=== PATIENT | female | born 1990 | race Caucasian/White ===

== ENCOUNTER 2020-02-24 14:12 | Inpatient (IN) | payer OTHER ==
[2020-02-24] MEDS ORDERED: LACTATED RINGERS 1,000 ML IV ONE (15:05)
[2020-02-24] MEDS ORDERED: CITRIC ACID-SODIUM CITRATE 15 ML CUP PO ONE (15:05)
--- NOTE | 2020-02-24 15:05 | P.HPOB ---
History of Present Illness H&P Date: 02/24/20 Chief Complaint: Bloody show This is a 29-year-old 3 para woman with an estimated due date of 02/16/2020 based on second trimester ultrasound who presents to labor and delivery triage at 41+ weeks gestation. She is complaining of some vaginal discharge, pink tinge since this morning. She's had mild irregular cramping. She denies leakage of fluids, heavy vaginal bleeding or painful contractions. Her obstetric history is significant for a term section for twins in 2011 and a postdates vaginal delivery in 2009. Unfortunately that child had multiple anomalies and is at age 7. has been complicated by late care, presenting at 19 weeks gestation and her last routine care visit with us was at 30 weeks gestation. She reports having some difficulty with [employer] and her medical insurance. The office was unaware of this issue. She reports she feels that she has been doing well in the time that she has not been seen. Upon initial evaluation on labor and delivery triage she is found to be irregularly sujey, cervix is 4 cm dilated 90% effaced and there is no presenting part. Bedside ultrasound shows a transverse presentation with the head to the maternal left abdomen. : Laboratory data: Blood type A+, antibody screen negative, rubella immune, VDRL nonreactive, hepatitis B surface antigen negative, HIV negative, gonorrhea clinic cultures negative, group B strep status unknown Review of Systems All systems: negative Past Medical History Past Medical History: Asthma Past Surgical History: Section Past Anesthesia/Blood Transfusion Reactions: No Reported Reaction Past Psychological History: No Psychological Hx Reported Smoking Status: Current some day smoker Past Alcohol Use History: None Reported Past Drug Use History: Marijuana Exam This is a pleasant, comfortable appearing female who is visibly gravid. Targeted physical exam is performed. The abdomen is gravid and appears term. Nontender. On Chase's infant in the transverse position with vertex in maternal left lower quadrant. On pelvic exam cervix is 4 cm dilated, 90% effaced with bulging membranes no presenting part. heart tones are curre ntly category 1 and she has an irritable contraction pattern. Assessment and Plan (1) Insufficient care Current Visit: Yes Status: Acute Code(s): O09.30 - SUPRVSN OF PREG W INSUFFICIENT ANTENAT CARE, UNSP TRIMESTER SNOMED Code(s): 1643306164647 (2) Malpresentation of fetus Current Visit: Yes Status: Acute Code(s): O32.9XX0 - MATERNAL CARE FOR MALPRESENTATION OF FETUS, UNSP, UNSP SNOMED Code(s): 49995046 (3) Spontaneous onset of labor Current Visit: Yes Status: Acute Code(s): UWN4559 - SNOMED Code(s): 89209598 (4) History of Current Visit: Yes Status: Acute Code(s): Z98.891 - HISTORY OF UTERINE SCAR FROM PREVIOUS SURGERY SNOMED Code(s): 307490354 Plan: This is a 29-year-old 3 para 2001 with history of previous low transverse section for twins who presents at 41+ weeks gestation in early active labor. Infant is in the transverse presentation. She is counseled regarding findings and recommendation for delivery secondary to significant postdates status, advanced cervical dilation. I recommend repeat low transverse section secondary to position. Patient understands these recommendations and agrees to proceed. Risks of the were reviewed with the patient and include but are not limited to: Bleeding, transfusion, infection, damage to bowel, bladder, ureters and/or other maternal structures, injury to infant, anesthesia complications, DVT or PE. Patient understands these risks and agrees to proceed. The anesthesiology team as well as the the OR have been notified.
[2020-02-24 15:35] LABS: Basophils % (A) 0 %; Eosinophils # (A) 0.2 k/uL (0-0.7); Eosinophils % (A) 1 %; HCT 43.4 % (34.0-46.0); HGB 14.2 gm/dL (11.4-16.0); Lymphocytes # (A) 2.6 k/uL (1.0-4.8); Lymphocytes % (A) 14 %; MCH 32.9 pg (25.0-35.0); MCHC 32.8 g/dL (31.0-37.0); MCV 100.4 fL (80.0-100.0); Mean Platelet Volume 9.2; Monocytes # (A) 0.5 k/uL (0-1.0); Monocytes % (A) 3 %; Neutrophils # (A) 14.8 k/uL (1.3-7.7); Neutrophils % (A) 81 %; Platelet Count 229 k/uL (150-450); RBC 4.33 m/uL (3.80-5.40); RDW 12.5 % (11.5-15.5); WBC 18.2 k/uL (3.8-10.6)
[2020-02-24] MEDS ORDERED: CLINDAMYCIN 600 MG in DEXTROSE 5% IN WATER 50 ML IVPB STA ×2 (15:35)
[2020-02-24 15:53] LABS: Amphetamine Screen,Urine Not Detected (NotDetected); Barbiturate Screen,Urine Not Detected (NotDetected); Benzodiazepines Screen,Urine Not Detected (NotDetected); Cocaine Screen,Urine Not Detected (NotDetected); Methadone Screen, Urine Not Detected (NotDetected); Opiate Screen,Urine Not Detected (NotDetected); Oxycodone Screen, Urine Not Detected (NotDetected); Phencyclidine Screen,Urine Not Detected (NotDetected); Tricyclic Antidepressant,Urine Not Detected (NotDetected); Urn Cannabinoid Scrn Detected (NotDetected)
[2020-02-24] MEDS ORDERED: MORPHINE SULFATE (PF) 0.3 MG/0.3 ML SYR ONE (16:13)
[2020-02-24] MEDS ORDERED: NALBUPHINE 10 MG/ML (1 ML AMP) ONE (16:13)
[2020-02-24] MEDS ORDERED: ONDANSETRON 4 MG/2 ML VIAL ONE (16:13)
[2020-02-24] MEDS ORDERED: OXYTOCIN 10 UNIT/ML 1 ML VIAL ONE (16:13)
[2020-02-24] MEDS ORDERED: ePHEDrine SULFATE/0.9% NACL/PF 50 MG/5 ML SYRINGE IV ONE (16:13)
[2020-02-24] MEDS ORDERED: KETOROLAC 30 MG/ML 1 ML VIAL ONE (16:13)
[2020-02-24] MEDS ORDERED: fentaNYL (PF) 50 MCG/ML 2 ML AMP ONE (16:13)
[2020-02-24] MEDS ORDERED: ACETAMINOPHEN TAB 325 MG TAB PO PRN (17:02)
[2020-02-24] MEDS ORDERED: HYDROcodone/APAP 5-325MG 1 EACH TAB PO PRN (17:02)
[2020-02-24] MEDS ORDERED: NALOXONE 0.4 MG/ML 1 ML VIAL IV PRN ×2 (17:02→21:13)
[2020-02-24] MEDS ORDERED: ZOLPIDEM 5 MG TAB PO PRN (17:02)
[2020-02-24] MEDS ORDERED: ONDANSETRON 4 MG/2 ML VIAL IVP PRN (17:02)
[2020-02-24] MEDS ORDERED: KETOROLAC 30 MG/ML 1 ML VIAL IVP PRN (17:02)
[2020-02-24] MEDS ORDERED: SIMETHICONE 80 MG CHEWABLE PO PRN (17:02)
[2020-02-24] MEDS ORDERED: diphenhydrAMINE 50 MG CAP PO PRN (17:02)
[2020-02-24] MEDS ORDERED: diphenhydrAMINE 50 MG/ML 1 ML VIAL IVP PRN ×2 (17:02)
[2020-02-24] MEDS ORDERED: diphenhydrAMINE 25 MG CAP PO PRN (17:02)
[2020-02-24] MEDS ORDERED: METOCLOPRAMIDE 5 MG/ML 2 ML VIAL IVP PRN (17:02)
--- NOTE | 2020-02-24 17:02 | P.OP ---
Date of Procedure: 02/24/20 Preoperative Diagnosis: Postdates at 41 and one sevenths weeks History of previous low transverse section Incision care Active labor malpresentation, transverse Postoperative Diagnosis: Same Procedure(s) Performed: Repeat low transverse section Anesthesia: spinal Surgeon: Tejal Cohn [employer] #1: Ivis Fabian Estimated Blood Loss (ml): 785 IV fluids (ml): 1,000 Urine output (ml): 100 Pathology: other (Placenta) Condition: stable Disposition: floor Operative Findings: Female in the transverse presentation occiput to the maternal left lower quadrant. Nuchal cord 1. Apgars of 8 at 1 minute and 9 at 5 minutes weighing 5 lbs. 10 oz., 2550 g. Description of Procedure: After the patient was met preoperatively and all questions were answered, she was taken to the operating room where spinal anesthetic was administered without incident. She was then positioned, prepped and draped in the dorsal supine position with a leftward tilt. Urbina catheter was placed. After anesthetic was confirmed adequate, a low transverse skin incision was made following the pre- existing scar. This was carried down to the underlying fascia both sharply and with the electrocautery. The fascia was then incised in the midline and extended bilaterally with the Alexander scissors. The superior aspect of the fascial incision was elevated and the underlying rectus muscles dissected off sharply and with the electrocautery. The inferior aspect of the fascial incision was also elevated and the underlying rectus muscles dissected off sharply. The muscles were adherent in the midline. These were bluntly and the peritoneum was tented up with hemostats. The peritoneum was entered sharply with the Metzenbaum scissors. The peritoneal incision was extended inferiorly and superiorly with good visualization of the bladder. The bladder blade was placed. The vesicouterine peritoneum was identified, tented up and entered sharply, the bladder flap was created both sharply and digitally. A low transverse uterine incision was then made sharply and carried down to the underlying amniotic membranes. Membranes were ruptured and light meconium- stained fluid was noted. The uterine incision was extended bilaterally bluntly. The infant's head was delivered from the incision without difficulty. Nuchal cord 1 was reduced .The nose and mouth were bulb suctioned. The rest of the was delivered onto the field without difficulty. And cut and the infant was taken to the warmer. An intact, three-vessel cord placenta was then manually removed and the uterus was exteriorized. The uterus was cleared of all clot and debris. The uterine incision was delineated with Santizo clamps. The uterine incision was then closed in a running locked fashion with 0 Vicryl suture. A second imbricating layer of the same was placed. The uterus was then returned to the abdomen and the gutters were cleared of all clot and debris. The uterine incision was reinspected and Bovie electrocautery was utilized were necessary for hemostasis. The fascial edges, peritoneal edges and rectus muscles were inspected and Bovie electrocautery utilized were necessary for hemostasis. The fascia was then closed in a running fashion with 0 Vicryl suture. The subcuticular tissue was copiously suction irrigated and Bovie electrocautery utilized were necessary for hemostasis. 3-0 Vicryl suture was utilized to reapproximate the subcuticular tissue. The skin was then closed in a subcutaneous fashion with 4-0 Vicryl suture. All counts reported to me as correct by the operating room staff at the end of the procedure. The patient received antibiotics preoperatively and Pitocin following cord clamp. Mother and were both transported from the room in stable condition.
[2020-02-24] MEDS ORDERED: OXYTOCIN 20 UNITS/1000 ML NS 1,000 ML IV SCH (17:15)
[2020-02-24] MEDS: LACTATED RINGERS 1,000 ML IV SCH ×2 (19:58→20:38)
[2020-02-24] MEDS ORDERED: MORPHINE SULFATE 2 MG/ML SYRINGE IVP PRN (21:13)
[2020-02-25] MEDS: SENNOSIDES-DOCUSATE SODIUM 1 EACH TAB PO SCH ×3 (01:33→21:17)
[2020-02-25] MEDS: LACTATED RINGERS 1,000 ML IV SCH ×2 (01:34)
[2020-02-25 06:02] LABS: Basophils % (A) 0 %; Eosinophils # (A) 0.1 k/uL (0-0.7); Eosinophils % (A) 0 %; HCT 37.3 % (34.0-46.0); HGB 12.9 gm/dL (11.4-16.0); Lymphocytes % (A) 10 %; MCH 33.7 pg (25.0-35.0); MCHC 34.6 g/dL (31.0-37.0); MCV 97.5 fL (80.0-100.0); Monocytes # (A) 0.6 k/uL (0-1.0); Monocytes % (A) 3 %; Neutrophils # (A) 17.2 k/uL (1.3-7.7); Neutrophils % (A) 86 %; Platelet Count 209 k/uL (150-450); RBC 3.83 m/uL (3.80-5.40); RDW 12.7 % (11.5-15.5)
--- NOTE | 2020-02-25 08:26 | P.PN ---
Progress Note - Text Date: 02/25/2020 Time: 08:24 The patient is status post section Vital signs stable VAS: 0-10 Patient has no complaints of pain. The patient incurred some minimal itching yesterday, this itching is now subsiding. Pain meds to be managed by service.
--- NOTE | 2020-02-25 10:16 | P.PNOBGPC ---
Subjective - Subjective Principal diagnosis: Postop day 1 Interval history: Feeling well, denies pain. Is anxious for discharge home. Patient reports: Reports appetite normal, Reports voiding normally, Reports pain well controlled, Reports ambulating normally, Denies dizzy ambulation, Denies nauseated [place]: doing well, bottle feeding Objective - Vital Signs Latest vital signs: Vital Signs Temp Pulse Resp BP Pulse Ox 02/25/20 08:00 98.1 F 65 18 100/54 02/25/20 06:00 18 98 02/25/20 04:00 97.1 F L 58 L 16 127/63 97 02/25/20 01:50 18 02/24/20 23:30 97.8 F 78 18 101/67 97 02/24/20 22:00 18 02/24/20 19:05 98.0 F 53 L 16 110/60 98 02/24/20 18:35 52 L 16 125/65 100 02/24/20 18:05 54 L 16 131/66 100 02/24/20 17:50 51 L 16 135/69 99 02/24/20 17:35 50 L 16 143/72 100 02/24/20 17:20 51 L 16 151/69 100 02/24/20 17:05 96.3 F L 55 L 16 119/67 100 02/24/20 15:47 98.2 F 75 16 112/74 100 02/24/20 15:23 98.2 F 75 16 112/74 100 Intake and Output 02/24/20 02/25/20 02/25/20 22:59 06:59 14:59 Intake Total 1000 Output Total 400 800 600 Balance -400 200 -600 Intake: IV 1000 Invasive Line 1 1000 Output: Urine 400 700 600 Uretheral (Urbina) 100 Emesis 100 Other: Voiding Method Indwelling Catheter # Voids 1 Weight 71.214 kg - Exam Lungs: bilateral: normal Abdomen: Present: soft, tenderness (Appropriate postop). Absent: distention Incision: Present: dry, intact, dressed Uterus: Present: normal, firm - Labs Labs: Abnormal Lab Results - Last 24 Hours (Table) 02/24/20 02/24/20 02/25/20 Range/Units 15:20 15:20 05:29 WBC 18.2 H 20.0 H (3.8-10.6) k/uL MCV 100.4 H (80.0-100.0) fL Neutrophils # 14.8 H 17.2 H (1.3-7.7) k/uL U Marijuana (THC) Screen Detected H (NotDetected) Assessment and Plan (1) Insufficient care Current Visit: Yes Status: Acute Code(s): O09.30 - SUPRVSN OF PREG W INSUFFICIENT ANTENAT CARE, UNSP TRIMESTER SNOMED Code(s): 2581803463546 (2) Malpresentation of fetus Current Visit: Yes Status: Acute Code(s): O32.9XX0 - MATERNAL CARE FOR MALPRESENTATION OF FETUS, UNSP, UNSP SNOMED Code(s): 44708527 (3) Spontaneous onset of labor Current Visit: Yes Status: Acute Code(s): FGZ5736 - SNOMED Code(s): 44619625 (4) History of Current Visit: Yes Status: Acute Code(s): Z98.891 - HISTORY OF UTERINE SCAR FROM PREVIOUS SURGERY SNOMED Code(s): 852697129 (5) Elevated WBC count Current Visit: Yes Status: Acute Code(s): D72.829 - ELEVATED WHITE BLOOD CELL COUNT, UNSPECIFIED SNOMED Code(s): 374400942 Plan: Postop day 1 status post repeat low transverse section for transverse presentation, history of previous section. Recovering well. Elevated WBC is increased from 18.2 on admission to 20.0 today. She has been afebrile throughout her hospital course with no localizing source of infection or history of illness. Physical exam nonspecific, normal postop. We will repeat cbc tomorrow. Chest x-ray, CBC, blood cultures if spikes fever.
[2020-02-25] MEDS: IBUPROFEN 600 MG TAB PO PRN (12:24)
[2020-02-26] MEDS: IBUPROFEN 600 MG TAB PO PRN (05:55)
[2020-02-26 09:19] VITALS: BP 124/78; PULSE 62; RESP 17; TEMP 98
[2020-02-26] MEDS: SENNOSIDES-DOCUSATE SODIUM 1 EACH TAB PO SCH (09:40)
--- NOTE | 2020-02-26 09:43 | P.DS ---
Providers Date of admission: 02/24/20 15:13 Expected date of discharge: 02/26/20 Attending physician: Tejal Cohn Primary care physician: Tejal Cohn [facility] Course: This is a 29-year-old white female 3 para 2001 who presented at 41 and one sevenths weeks' gestation in early labor. Her history is significant for late care, and no care since 30 weeks gestation secondary to loss of insurance. Patient has a history of previous section for twin gestation. Upon presentation her cervix was 4 cm dilated, with the in the transverse position. After consultation, decision was made to proceed with repeat section. Blood type is A+, rubella status immune. Please see dictated history and physical for details. Patient underwent a repeat low transverse section and gave to a liveborn female infant. weighed 2550 g or 5 lbs. 10 oz. Surgery was otherwise unremarkable, please see dictated delivery note for details. This morning the patient is doing well. She is voiding, ambulating and passing flatus without difficulty. Vital signs are stable and she is afebrile. Fundus is firm and in the midline, symmetric and 18 week size. Extremities are nega tive for edema. Breasts are not engorged. Pain is well tolerated. Patient is judged to be in good condition for discharge home pending rn social work consult. She will follow-up in the office with me in 2 weeks. I have reminded her no intercourse, tampons or douching. She will use [id number] Advil or Aleve, or ibuprofen as needed for pain. This can be rotated with extra strength Tyle nol as we have discussed in detail. She will call me with any fevers shakes or chills, foul smelling or copious lochia, with the passage of large blood clots, with any pain not alleviated by [id number] products, or indeed with any concerns. We have briefly reviewed options for contraception and we'll discuss this further at the 2 week visit. Patient Condition at Discharge: Good Plan - Discharge Summary Discharge Rx Participant: No New Discharge Prescriptions: No Action No Known Home Medications Discharge Medication List No Known Home Medications 02/24/20 [History] Follow up Appointment(s)/Referral(s): Liz Chauhan MD [STAFF PHYSICIAN] - 2 Weeks Discharge Disposition: HOME SELF-CARE
== END 2020-02-26 12:30 | disposition home or self-care (01) | DRG 788 ==
LOC: FBPOP 14:12 → 4FBP 15:13
PROVIDERS: ADMIT Obstetrics & Gynecology; ATTEND Obstetrics & Gynecology
PROC: 10D00Z1 Extraction of Products of Conception, Low, Open Approach (ICD-10-PCS; principal; 2020-02-24 16:13)
DX: O34.211 Maternal care for low transverse scar from previous cesarean delivery (principal); O32.2XX0 Maternal care for transverse and oblique lie, not applicable or unspecified; O99.334 Smoking (tobacco) complicating childbirth; F17.210 Nicotine dependence, cigarettes, uncomplicated; J45.909 Unspecified asthma, uncomplicated; O48.0 Post-term pregnancy; O69.81X0 Labor and delivery complicated by cord around neck, without compression, not applicable or unspecified; O99.52 Diseases of the respiratory system complicating childbirth; Z37.0 Single live birth; Z88.0 Allergy status to penicillin; Z91.040 Latex allergy status
CPT/HCPCS: 59025; 80306; 85025; 86850; 86900; 86901; 88307; 99213

== ENCOUNTER 2021-11-23 06:33 | Inpatient (IN) | payer OTHER ==
[2021-11-23] MEDS ORDERED: CITRIC ACID-SODIUM CITRATE 15 ML CUP PO ONE (07:09)
[2021-11-23] MEDS ORDERED: GENTAMICIN 300 MG in SODIUM CHLORIDE 0.9% 100 ML IVPB ONE (07:10)
[2021-11-23] MEDS ORDERED: CLINDAMYCIN 900 MG in DEXTROSE 5% IN WATER 50 ML IVPB ONE ×2 (07:10)
[2021-11-23 07:53] VITALS: RESP 16
[2021-11-23 07:57] LABS: Basophils % (A) 0 %; Eosinophils % (A) 0 %; HCT 41.6 % (34.0-46.0); HGB 13.8 gm/dL (11.4-16.0); Lymphocytes # (A) 1.5 k/uL (1.0-4.8); Lymphocytes % (A) 14 %; MCH 33.5 pg (25.0-35.0); MCHC 33.2 g/dL (31.0-37.0); MCV 100.7 fL (80.0-100.0); Mean Platelet Volume 9.2; Monocytes # (A) 0.8 k/uL (0-1.0); Monocytes % (A) 7 %; Neutrophils # (A) 8.4 k/uL (1.3-7.7); Neutrophils % (A) 76 %; Platelet Count 240 k/uL (150-450); RBC 4.13 m/uL (3.80-5.40); RDW 12.9 % (11.5-15.5); WBC 10.9 k/uL (3.8-10.6)
--- NOTE | 2021-11-23 07:57 | P.HPOB ---
History of Present Illness H&P Date: 11/23/21 Chief Complaint: IUP at 36 5/7 weeks, PROM This is a 31-year-old 5 para 4005 at 36-5/7 weeks that presents to labor and delivery with complaints of rupture of membranes. Patient states around 6 AM she noted a large gush of clear fluid. She continued to leak clear fluid upon standing. Patient has had no care with this . Patient states her last menstrual period was sometime in the beginning of April, she had an ultrasound done at the care center at approximately 25 weeks giving her a due date of 12/16. Patient does note good movement denies vaginal bleeding. Patient has a h/o a postdates , this child at age 7 due to charge syndrome. 2011 twin gestation 36 weeks LTCS, 2020 RCS was preformed Review of Systems Constitutional: Denies chills, Denies fatigue, Denies fever Ears, nose, mouth and throat: Denies headache Cardiovascular: Denies leg edema Gastrointestinal: Denies constipation, Denies diarrhea, Denies nausea, Denies vomiting Genitourinary: Reports Past Medical History Past Medical History: Asthma History of Any Multi-Drug Resistant Organisms: None Reported Past Surgical History: Section Past Anesthesia/Blood Transfusion Reactions: No Reported Reaction Past Psychological History: No Psychological Hx Reported Past Alcohol Use History: None Reported Past Drug Use History: Marijuana - Past Family History Mother Family Medical History: No Reported History Medications and Allergies Home Medications Medication Instructions Recorded Confirmed Type No Known Home Medications 02/24/20 11/23/21 History Allergies Allergy/AdvReac Type Severity Reaction Status Date / Time Penicillins Allergy Intermediate Rash/Hives Verified 11/23/21 07:01 latex Allergy Rash/Hives Verified 11/23/21 07:01 Exam Osteopathic Statement: *. No significant issues noted on an osteopathic structural exam other than those noted in the History and Physical/Consult. Intake and Output 11/22/21 11/23/21 11/23/21 22:59 06:59 14:59 Other: Weight 63.957 kg Targeted physical exam is performed in this date and ent physician a well-nourished well-developed female in no acute distress, breathing is noted to be nonlabored, heart has regular rate and rhythm, abdomen is gravid, cervical exam was attempted by RN, patient refused secondary to discomfort. heart tones are noted to be category 1 and she is not sujey. Assessment and Plan (1) 36 weeks gestation of Current Visit: Yes Status: Acute Code(s): Z3A.36 - 36 WEEKS GESTATION OF SNOMED Code(s): 29382604 (2) PROM (premature rupture of membranes) Current Visit: Yes Status: Acute Code(s): O42.90 - IRVIN ROM, 7TH0 BETW RUPT & ONST LABR, UNSP WEEKS OF GEST SNOMED Code(s): 93899961 (3) History of Current Visit: No Status: Acute Code(s): Z98.891 - HISTORY OF UTERINE SCAR FROM PREVIOUS SURGERY SNOMED Code(s): 767220318 (4) Insufficient care Current Visit: No Status: Acute Code(s): O09.30 - SUPRVSN OF PREG W INSUFFICIENT ANTENAT CARE, UNSP TRIMESTER SNOMED Code(s): 7949556525816 Plan: 31-year-old 5 para 4005 at 36-5/7 weeks that presents with complaints of premature rupture of membranes. Patient initially noted fluid to be clear in nature, some green tinged discharge was appreciated while on labor and delivery. Patient has a prior history of 2 C-sections, will plan on repeat sec tion with this delivery. Patient is offered tubal ligation, she declines. C- section is reviewed questions are answered.
[2021-11-23] MEDS: LACTATED RINGERS 1,000 ML IV SCH ×2 (08:13→17:21)
[2021-11-23] MEDS ORDERED: OXYTOCIN 30 UNITS/500 ML NS BAG IV ONE (08:50)
[2021-11-23] MEDS ORDERED: fentaNYL (PF) 50 MCG/ML 2 ML AMP ONE (08:50)
[2021-11-23] MEDS ORDERED: MORPHINE SULFATE (PF) 0.3 MG/0.3 ML SYR ONE (08:50)
[2021-11-23] MEDS ORDERED: ONDANSETRON 4 MG/2 ML VIAL ONE (08:50)
--- NOTE | 2021-11-23 09:44 | P.OP ---
Date of Procedure: 11/23/21 Preoperative Diagnosis: IUP at 36 and 5, history of 2, PPROM Postoperative Diagnosis: Same plus meconium-stained fluid Procedure(s) Performed: Repeat section Anesthesia: spinal Surgeon: Gillian Rapp Court Recording Monitor #1: Ivis Fabian Estimated Blood Loss (ml): 160 IV fluids (ml): 1,000 Urine output (ml): 50 Pathology: other (Placenta) Condition: stable Disposition: observation Indications for Procedure: 31-year-old at 36-5/7 weeks with an estimated due date of 12/16 based on a 26 week ultrasound presents with complaints of premature rupture of membranes. Patient noted the fluid to be clear initially and meconium-stained upon presentation to labor and delivery. Patient has 2 prior C-sections, recommended repeat section, tubal ligation offered and declined. Operative Findings: Normal uterus tubes and ovaries were appreciated, small omental adhesion to the fundal portion of the uterus taken down sharply with the Bovie. Viable female infant delivered at 907, weight of 5 lbs. 4 oz., Apgars of 8 and 9 at one and 5 minutes respectively. Spontaneous cry was noted at . Description of Procedure: Patient was taken back to the operating suite where spinal anesthesia was found be adequate by the anesthesia . She was then prepped and draped in normal sterile fashion in the dorsal supine position. A Pfannenstiel skin incision was made the scalpel and carried through the underlying layer of fascia. Fascia was then incised in the midline and extended laterally. The superior aspect the f ascial incision was then grasped rhonda clamps, elevated and underlying rectus muscles dissected off sharply. Attention was then turned the inferior aspect the fascial incision which was grasped rhonda clamps, elevated and underlying rectus muscles dissected off sharply once again. Rectal muscles in the midline the peritoneum was identified and entered. This incision was then extended superiorly and inferiorly with good visualization the bladder. The bladder blade was then inserted into the pelvis. The bladder flap using sharp and blunt dissection. The bladder blade was then reinserted into the pelvis. A hysterotomy incision was made the scalpel, amniotomy was performed thick meconium-stained fluid was appreciated. Infant was encountered in a vertex presentation and delivered in the usual fashion. The umbilical cord was doubly clamped and cut and the was handed to awaiting RN, spontaneous cry was noted at . The placenta was delivered manually and the uterus cleared of all clots and debris. The uterus was delivered from the abdomen and hysterotomy incision was closed with 0 Vicryl in a running locked fashion, a second imbricating suture was performed. Hemostasis was appreciated. The uterus was then returned to the abdomen. The gutters were cleared of all clots and debris. Hysterotomy incision was given a small amount bleeding was noted in the m idportion of the hysterotomy incision therefore a aapglb-xp-uoqal suture was used to obtain hemostasis. The hysterotomy incision was inspected and found to be hemostatic. The peritoneum was then loosely reapproximated. The fascia was then closed with 0 Vicryl in a running fashion from one lateral edge the other. The subcutaneous tissue was irrigated found to be hemostatic and closed with 3-0 Vicryl in a running fashion. Skin was then closed with 4-0 Vicryl in a subarticular fashion. Steri-Strips and sterile dressings were applied. All counts correct 2 at the procedure. Patient and infant tolerated procedure well and are resting complete.
[2021-11-23 09:54] LABS: Amphetamine Screen,Urine Not Detected (NotDetected); Appearance,Urine Cloudy (Clear); Barbiturate Screen,Urine Not Detected (NotDetected); Benzodiazepines Screen,Urine Not Detected (NotDetected); Bilirubin,Urine Negative (Negative); Blood,Urine Negative (Negative); Cocaine Screen,Urine Not Detected (NotDetected); Color,Urine Yellow; Glucose,Urine (UA) Negative (Negative); Ketones,Urine 2+ (Negative); Leukocyte Esterase,Urine Negative (Negative); Methadone Screen, Urine Not Detected (NotDetected); Mucus,Urine Many /hpf; Nitrite,Urine Negative (Negative); Opiate Screen,Urine Not Detected (NotDetected); Oxycodone Screen, Urine Not Detected (NotDetected); Phencyclidine Screen,Urine Not Detected (NotDetected); Protein,Urine 1+ (Negative); RBC,Urine 3 /hpf (0-5); Specific Gravity,Urine 1.034 (1.001-1.035); Squamous Epithelial Cell,Urine 3 /hpf (0-4); Tricyclic Antidepressant,Urine Not Detected (NotDetected); Urn Cannabinoid Scrn Detected (NotDetected); WBC,Urine 4 /hpf (0-5)
[2021-11-23] MEDS ORDERED: NALOXONE 0.4 MG/ML 1 ML VIAL IV PRN (10:07)
[2021-11-23] MEDS ORDERED: HYDROmorphone 0.5 MG/0.5 ML SYRINGE IVP PRN (10:07)
[2021-11-23] MEDS ORDERED: ONDANSETRON 4 MG/2 ML VIAL IVP PRN (10:07)
[2021-11-23] MEDS ORDERED: diphenhydrAMINE 50 MG/ML 1 ML VIAL IVP PRN ×2 (10:07→20:23)
[2021-11-23 17:18] LABS: Hepatitis B Surface Antigen Nonreactive (Nonreactive)
[2021-11-23] MEDS: CLINDAMYCIN 900 MG in DEXTROSE 5% IN WATER 50 ML IVPB SCH ×4 (17:21→23:44)
[2021-11-23] MEDS ORDERED: ZOLPIDEM 5 MG TAB PO PRN (20:23)
[2021-11-23] MEDS ORDERED: diphenhydrAMINE 25 MG CAP PO PRN (20:23)
[2021-11-23] MEDS ORDERED: SIMETHICONE 80 MG CHEWABLE PO PRN (20:23)
[2021-11-23] MEDS ORDERED: diphenhydrAMINE 50 MG CAP PO PRN (20:23)
[2021-11-24] MEDS: LACTATED RINGERS 1,000 ML IV SCH (00:09)
[2021-11-24] MEDS: ACETAMINOPHEN TAB 500 MG TAB PO SCH ×4 (00:09→23:06)
[2021-11-24] MEDS: IBUPROFEN 600 MG TAB PO SCH ×4 (03:29→22:42)
--- NOTE | 2021-11-24 06:36 | P.PN ---
Progress Note - Text Progress Note Date: 11/24/21 Postoperative day 1 status post section under spinal anesthesia, and i ntrathecal morphine given for postoperative analgesia, patient doing well, there is no anesthesia related complications, Patient had no headache, vital signs stable , Assessment and plan= postop day 1 status post , doing well there is no anesthesia related complication.
[2021-11-24] MEDS: CLINDAMYCIN 900 MG in DEXTROSE 5% IN WATER 50 ML IVPB SCH ×2 (08:22)
[2021-11-24] MEDS: SENNOSIDES-DOCUSATE SODIUM 1 EACH TAB PO SCH ×2 (08:26→22:42)
--- NOTE | 2021-11-24 08:57 | P.PNOBGPC ---
Subjective - Subjective Principal diagnosis: Postop day 1, repeat section Interval history: Patient is doing well postoperatively. She is ambulating and voiding without difficulty. Her pain is well-controlled. She is bottle feeding. Her lochia is minimal Patient reports: Reports appetite normal, Reports voiding normally, Reports pain well controlled, Reports ambulating normally : doing well Objective - Vital Signs Latest vital signs: Vital Signs Temp Pulse Resp BP Pulse Ox 11/24/21 04:00 99.0 F 87 16 99/62 97 11/23/21 23:55 99.4 F 85 16 106/62 95 11/23/21 21:00 16 11/23/21 19:57 99.4 F 69 16 85/52 95 11/23/21 19:00 16 97 11/23/21 17:00 16 11/23/21 16:00 98.3 F 65 16 93/53 96 11/23/21 15:07 96 11/23/21 15:00 16 96 11/23/21 13:07 16 97 11/23/21 12:00 97.6 F 64 16 97/58 97 11/23/21 11:37 98 F 70 16 98/64 99 11/23/21 11:07 70 16 96/61 99 11/23/21 10:37 57 L 16 87/57 98 11/23/21 10:22 94 16 94/55 98 11/23/21 10:07 72 16 97/55 97 11/23/21 09:52 71 16 109/58 96 11/23/21 09:37 85 16 115/59 96 Intake and Output 11/23/21 11/24/21 11/24/21 22:59 06:59 14:59 Output Total 625 900 Balance -625 -900 Output: Urine 625 900 Uretheral ([place]rbina) 150 Other: # Voids 1 - Exam Extremities: Present: normal. Absent: edema Abdomen: Present: normal appearance Incision: Present: normal, dry, intact Uterus: Present: normal, firm - Labs Labs: Abnormal Lab Results - Last 24 Hours (Table) 11/23/21 11/23/21 Range/Units 08:55 10:32 Urine Appearance Cloudy H (Clear) Urine Protein 1+ H (Negative) Urine Ketones 2+ H (Negative) Urine Mucus Many H (None) /hpf U Marijuana (THC) Screen Detected H (NotDetected) Rubella IgG Antibody 57.70 H (0.00-10.00) IU/mL Assessment and Plan (1) 36 weeks gestation of Current Visit: Yes Status: Acute Code(s): Z3A.36 - 36 WEEKS GESTATION OF SNOMED Code(s): 95087701 (2) PROM (premature rupture of membranes) Current Visit: Yes Status: Acute Code(s): O42.90 - IRVIN ROM, 7TH0 BETW RUPT & ONST LABR, UNSP WEEKS OF GEST SNOMED Code(s): 10563306 (3) History of Current Visit: No Status: Acute Code(s): Z98.891 - HISTORY OF UTERINE SCAR FROM PREVIOUS SURGERY SNOMED Code(s): 985507356 (4) Insufficient care Current Visit: No Status: Acute Code(s): O09.30 - SUPRVSN OF PREG W INSUFFICIENT ANTENAT CARE, UNSP TRIMESTER SNOMED Code(s): 8547988855422 Plan: Patient is doing well postoperatively. She is ambulating and voiding without difficulty. Pain is well-controlled. lochia minimal Anticipate discharge tomorrow a.m.
[2021-11-24 14:51] LABS: C. trachomatis,PCR Negative (Neg,Equiv); Chlamydia trachomatis Source Urine; N. gonorrhoeae,PCR Negative (Neg,Equiv); Neisseria Source Urine
[2021-11-24 18:26] LABS: HIV 2 AB Non-Reactive (Non-Reactive); HIV AB P24 Non-Reactive (Non-Reactive); HIV P24 AG Non-Reactive (Non-Reactive)
[2021-11-25] MEDS: ACETAMINOPHEN TAB 500 MG TAB PO SCH ×3 (00:47→13:07)
[2021-11-25] MEDS: IBUPROFEN 600 MG TAB PO SCH ×2 (04:46→12:13)
[2021-11-25] MEDS: LACTATED RINGERS 1,000 ML IV SCH (05:35)
[2021-11-25] MEDS: SENNOSIDES-DOCUSATE SODIUM 1 EACH TAB PO SCH (09:53)
--- NOTE | 2021-11-25 10:25 | P.DS ---
Providers Date of admission: 11/23/21 06:57 Expected date of discharge: 11/25/21 Attending physician: Gillian Rapp Primary care physician: Stated None - Discharge Diagnosis(es) (1) 36 weeks gestation of Current Visit: Yes Status: Acute (2) PROM (premature rupture of membranes) Current Visit: Yes Status: Acute (3) History of Current Visit: No Status: Acute (4) Insufficient care Current Visit: No Status: Acute (5) S/P section Current Visit: Yes Status: Acute Hospital Course: This is a 31-year-old 5 para 3105 that presented to labor and delivery at 36-5/7 weeks with an estimated due date 2:15 based on a 26 week ultrasound done in the care center. Patient noted premature rupture of membranes, fluid was initially clear then turned meconium-stained upon presentation to labor and delivery. Patient did have a history of 2 prior C- sections, recommendation for repeat . Tube ligation was offered and she declines. Patient has had no care during this , she states she was very sick in the first trimester and her physician declines testing due to her illness. Patient took a test in the second trimester which was positive, is dated based on a 26 week ultrasound. Patient was admitted to labor and delivery and repeat section was performed. For full details on the please see the operative report patient delivered a viable female infant at 907, weight of 5 lbs. 4 oz., Apgars of 8 and 9 at one and 5 minutes respect weight. Spontaneous cry was noted at . Since care is been uneventful. On this postoperative day #2 she is ambulating and voiding without difficulty. She states her pain is well- controlled with ibuprofen. She is bottle feeding. She denies concerns. She is anxious for discharge home. Patient Condition at Discharge: Good Plan - Discharge Summary New Discharge Prescriptions: No Action No Known Home Medications Discharge Medication List No Known Home Medications 02/24/20 [History] Follow up Appointment(s)/Referral(s): Gillian Rapp DO [Doctor of Osteopathic Medicine] - 2 Weeks Patient Instructions/Handouts: (DC), (GEN) Discharge Disposition: HOME SELF-CARE
[2021-11-25 16:34] VITALS: BP 104/64; PULSE 65; TEMP 98.4
== END 2021-11-25 19:00 | disposition home or self-care (01) | DRG 786 ==
LOC: FBPOP 06:33 → 4FBP 06:57
PROVIDERS: ADMIT Obstetrics & Gynecology Obstetrics; ATTEND Obstetrics & Gynecology Obstetrics
PROC: 10D00Z1 Extraction of Products of Conception, Low, Open Approach (ICD-10-PCS; principal; 2021-11-23 09:02)
DX: O34.211 Maternal care for low transverse scar from previous cesarean delivery (principal); O60.14X0 Preterm labor third trimester with preterm delivery third trimester, not applicable or unspecified; O30.003 Twin pregnancy, unspecified number of placenta and unspecified number of amniotic sacs, third trimester; O42.913 Preterm premature rupture of membranes, unspecified as to length of time between rupture and onset of labor, third trimester; J45.909 Unspecified asthma, uncomplicated; O99.892 Other specified diseases and conditions complicating childbirth; N73.6 Female pelvic peritoneal adhesions (postinfective); O77.0 Labor and delivery complicated by meconium in amniotic fluid; O99.52 Diseases of the respiratory system complicating childbirth; Z37.2 Twins, both liveborn; Z3A.36 36 weeks gestation of pregnancy; Z87.59 Personal history of other complications of pregnancy, childbirth and the puerperium; Z91.040 Latex allergy status; Z88.0 Allergy status to penicillin; Z91.018 Allergy to other foods; Z37.0 Single live birth
CPT/HCPCS: 80306; 81001; 82947; 85025; 86762; 86780; 86850; 86900; 86901; 87340; 87390; 87491; 87591; 88307